=== PATIENT | female | born 1995 | race Caucasian/White ===

== ENCOUNTER 2019-09-01 10:16 | Emergency (ER) | payer BC, OTHER ==
[2019-09-01] MEDS ORDERED: Sodium Chloride 0.9% 1,000 ML IV ONE (10:43)
--- NOTE | 2019-09-01 12:56 | EDM.PDOC ---
ED HPI GENERAL MEDICAL PROBLEM - General Chief Complaint: Syncope Time Seen by Provider: 09/01/19 10:30 Source of Information: Reports: Patient History Limitations: Reports: No Limitations - History of Present Illness INITIAL COMMENTS - FREE TEXT/NARRATIVE: Patient presented to the ED because of a brief syncopal episode while sitting up at the salon. It lasted for less than a minute. She denies feeling dizzy, palpitations except for a mild headache. She has a history of passing out as a child but never been evaluated. - Related Data Allergies Allergy/AdvReac Type Severity Reaction Status Date / Time No Known Allergies Allergy Verified 09/01/19 10:46 Home Meds: Home Meds Pnv No.95/Ferrous Fum/Folic AC [ Multivitamin Tablet] 1 each PO DAILY [History] Past Medical History - Past Health History Medical/Surgical History: Denies Medical/Surgical History Social & Family History - Tobacco Use Smoking Status *Q: Never Smoker ED ROS GENERAL - Review of Systems Review Of Systems: See Below Constitutional: Reports: No Symptoms HEENT: Reports: No Symptoms Respiratory: Reports: No Symptoms Cardiovascular: Reports: No Symptoms Endocrine: Reports: No Symptoms GI/Abdominal: Reports: No Symptoms : Reports: No Symptoms Musculoskeletal: Reports: No Symptoms Skin: Reports: No Symptoms Neurological: Reports: No Symptoms - Physical Exam Exam: See Below Exam Limited By: No Limitations General Appearance: Alert Ears: Normal External Exam Nose: Normal Inspection Throat/Mouth: Normal Inspection Head Exam: Atraumatic Neck: Normal Inspection Respiratory/Chest: No Respiratory Distress Cardiovascular: Normal Peripheral Pulses, Regular Rate, Rhythm, No Edema, No Gallop Neuro Exam (Abbreviated): Alert, Oriented, CN II-XII Intact, Normal Cognition, Normal Gait, Normal Reflexes, No Motor/Sensory Deficits Extremities: Normal Inspection, Normal Range of Motion, Non-Tender, No Pedal Edema, Normal Capillary Refill Psychiatric: Normal Affect, Normal Mood Skin Exam: Warm Course - Vital Signs Text/Narrative:: labs/EKG was reviewed with patient and family members and verbalized full understanding EKG-NSR UA-neg NS 1 L bolus Patient was hooked on the OB monitor and there is normal FHR-150's and some uterine irritability but no sustained UC's. Last Recorded V/S: Last Vital Signs Temp 37.1 C 02/19/20 10:16 Pulse 90 09/01/19 10:45 Resp 19 09/01/19 10:45 BP 110/72 09/01/19 10:45 Pulse Ox 100 09/01/19 10:45 - Orders/Labs/Meds Orders: Active Orders 24 hr Category Date Time Status EKG Documentation Completion [RC] ASDIRECTED Care 09/01/19 12:28 Active EKG 12 Lead [EK] Routine Ther 09/01/19 12:27 Ordered Labs: Laboratory Tests 09/01/19 09/01/19 09/01/19 Range/Units 10:40 10:40 11:00 WBC 12.4 H (4.5-12.0) X10-3/uL RBC 3.89 (3.23-5.20) x10(6)uL Hgb 11.9 (11.5-15.5) g/dL Hct 35.0 (30.0-51.3) % MCV 90.0 (80-96) fL MCH 30.6 (27.7-33.6) pg MCHC 34.0 (32.2-35.4) g/dL RDW 12.2 (11.5-15.5) % Plt Count 216 (125-369) X10(3)uL MPV 9.8 (7.4-10.4) fL Neut % (Auto) 81.4 (46-82) % Lymph % (Auto) 12.1 L (13-37) % [place] % (Auto) 4.8 (4-12) % Eos % (Auto) 1 (1.0-5.0) % Baso % (Auto) 1 (0-2) % Neut # (Auto) 10.1 H (1.6-8.3) # Lymph # (Auto) 1.5 (0.6-5.0) # [place] # (Auto) 0.6 (0.0-1.3) # Eos # (Auto) 0.1 (0.0-0.8) # Baso # (Auto) 0.1 (0.0-0.2) # Sodium 139 (135-145) mmol/L Potassium 4.4 (3.5-5.3) mmol/L Chloride 105 (100-110) mmol/L Carbon Dioxide 25 (21-32) mmol/L BUN 4 L (7-18) mg/dL Creatinine 0.6 (0.55-1.02) mg/dL Est Cr Clr Drug Dosing TNP Estimated GFR (MDRD) > 60 (>60) BUN/Creatinine Ratio 6.7 L (9-20) Glucose 91 (80-116) mg/dL Calcium 8.3 L (8.6-10.2) mg/dL Urine Color Yellow (YELLOW) Urine Appearance Slightly cloudy (CLEAR) Urine pH 7.0 H (5.0-6.5) Ur Specific [place] 1.010 (1.010-1.025) Urine Protein Negative (NEGATIVE) mg/dL Urine Glucose (UA) Normal (NORMAL) mg/dL Urine Ketones Negative (NEGATIVE) mg/dL Urine Occult Blood Negative (NEGATIVE) Urine Nitrite Negative (NEGATIVE) Urine Bilirubin Negative (NEGATIVE) Urine Urobilinogen Normal (NEGATIVE) mg/dL Ur Leukocyte Esterase Negative (NEGATIVE) Urine WBC 0-5 (0-5) Ur Squamous Epith Cells Few H (NS,R,O) Urine Bacteria Few H (NS) Meds: Medications Discontinued Medications Generic Name Dose Route Start Last Admin Trade Name Freq PRN Reason Stop Dose Admin Sodium Chloride 1,000 mls @ 999 mls/hr 09/01/19 10:43 09/01/19 12:16 Normal Saline IV 09/01/19 11:43 Not Given .BOLUS ONE Departure - Departure Time of Disposition: 11:30 Disposition: Refer to Observation Clinical Impression: Vasovagal syncope, Dehydration - Discharge Information Referrals: Ruben Coats MD [Primary Care Provider] - Forms: ED Department Discharge Sepsis Event Note - Evaluation Sepsis Screening Result: No Definite Risk - Focused Exam Vital Signs: Vital Signs Temp Pulse Resp BP Pulse Ox 09/01/19 10:45 90 19 110/72 100 09/01/19 10:16 37.1 C 78 20 114/67 100 Date Exam was Performed: 09/01/19 Time Exam was Performed: 12:50 - My Orders Last 24 Hours: My Active Orders 09/01/19 12:27 EKG 12 Lead [EK] Routine 09/01/19 12:28 EKG Documentation Completion [RC] ASDIRECTED - Assessment/Plan Last 24 Hours: My Active Orders 09/01/19 12:27 EKG 12 Lead [EK] Routine 09/01/19 12:28 EKG Documentation Completion [RC] ASDIRECTED
== END 2019-09-01 11:06 | disposition admitted as inpatient to this hospital (09) ==
LOC: FB.ED 10:16
DX: E86.0 Dehydration (principal); R55 Syncope and collapse
CPT/HCPCS: 36415; 80048; 81001; 85025; 93005; 93010; 99283; 99285-25

== ENCOUNTER 2022-09-22 11:01 | Emergency (ER) | payer OTHER ==
[2022-09-22] MEDS ORDERED: Ondansetron 4 MG Tab.DIS PO ONE (11:02)
[2022-09-22] MEDS ORDERED: Ondansetron 4 MG/2 ML SDV IVPUSH ONE (12:39)
[2022-09-22 12:51] LABS: ESTIMATED GFR 122 mL/min (>60)
[2022-09-22] MEDS ORDERED: Loperamide 2 MG Cap PO PRN (12:57)
[2022-09-22] MEDS ORDERED: Sodium Chloride 0.9% 1,000 ML IV ONE (13:20)
== END 2022-09-22 14:16 | disposition swing bed (61) ==
LOC: FB.ED 11:01
DX: A08.4 Viral intestinal infection, unspecified (principal); R82.998 Other abnormal findings in urine
CPT/HCPCS: 36415; 80053; 81001; 83605; 83735; 85025; 87045; 87046; 87427; 96361; 96374; 99283; 99284; A9270; J2405; J7030; Q0162